=== PATIENT | female | born 1945 | race Caucasian/White ===

== ENCOUNTER 2017-09-02 19:01 | Emergency (ER) | payer MEDICARE, OTHER ==
[2017-09-02 19:16] VITALS: BP 160/58
== END 2017-09-02 20:25 | disposition left against medical advice (07) ==
LOC: ED 19:01
DX: R10.9 Unspecified abdominal pain (principal); Z53.21 Procedure and treatment not carried out due to patient leaving prior to being seen by health care provider

== ENCOUNTER 2019-04-05 10:40 | Observation (INO) | payer MEDICARE, OTHER ==
[2019-04-05] MEDS ORDERED: NS 0.9% 1000 ML** 1,000 ML IV ONE (10:46)
[2019-04-05 11:12] LABS: ABS Eosinophils 0.1 10^3/ul (0-0.6); ABS Lymphocytes 1.6 10^3/ul (1.0-4.8); ABS Monocytes 0.6 10^3/ul (0-0.8); ABS Neutrophils 6.6 10^3/ul (1.5-7.7); Eosinophil % 0.7 %; Hematocrit 44 % (35-47); Hemoglobin 15.2 g/dL (12.0-16.0); Lymphocyte % 17.7 %; Mean Corpuscular HGB Conc 35 g/dL (31-36); Mean Corpuscular Hemoglobin 31 pg (27-31); Mean Corpuscular Volume 89 fL (80-97); Mean Platelet Volume 7.5 fL (7.4-10.4); Nucleated Red Blood Cells % 0.1; Platelet Count 227 10^3/uL (150-450); Red Blood Count 4.94 10^6 /uL (3.70-4.87); Red Cell Distribution Width 13 % (10-15); White Blood Count 8.9 10^3/uL (3.5-10.8)
--- NOTE | 2019-04-05 11:22 | ED ---
Neurological HPI - HPI Summary HPI Summary: Pt is a 73 y/o F presenting to the ED with a chief complaint of L-sided weakness. Upon waking up at 0200, she noticed that her L arm and hand were weak , which has since resolved. She states she felt fine when going to bed. Before presenting to the hospital, she developed a headache. Last known well: 1999. She denies fevers. CODE JANET CALLED: 10:42. - History of Current Complaint Chief Complaint: EDNeurologicalDeficit Stated Complaint: PAIN IN BACK OF HEAD PER PT Time Seen by Provider: 04/05/19 10:46 Last Known Well Date: 04/04/19 20:00 Hx Obtained From: Patient Onset/Duration: Gradual Onset, Started hours ago, Still Present Timing: Constant Onset Severity: Moderate Current Severity: Moderate Character: Weak, Motor Weakness, Other: - headache Aggravating: Unknown Alleviating: Unknown Associated Signs and Symptoms: Positive: Headache, Weakness. Negative: Fever TPA Considered: No - Allergy/Home Medications Allergies/Adverse Reactions: Allergies Allergy/AdvReac Type Severity Reaction Status Date / Time Cephalosporins Allergy Rash Verified 04/05/19 13:06 Home Medications: Home Medications Aspirin EC TAB* [Ecotrin EC Low Dose 81 MG*] 81 mg PO DAILY 04/05/19 [History Confirmed 04/05/19] Atorvastatin* [Lipitor*] 20 mg PO DAILY 04/05/19 [History Confirmed 04/05/19] Lisinopril/HCTZ 20/12.5(NF) [Zestoretic 20/12.5(NF)] 1 tab PO DAILY 04/05/19 [ History Confirmed 04/05/19] Venlafaxine EXT RELEASE CAP* [Effexor Xr CAP*] 75 mg PO DAILY 04/05/19 [History Confirmed 04/05/19] Venlafaxine EXT RELEASE CAP* [Effexor Xr CAP*] 150 mg PO DAILY 04/05/19 [ History Confirmed 04/05/19] Ziprasidone * [Geodon (generic) *] 40 mg PO BID 04/05/19 [History Confirmed ] amLODIPine TAB* [Norvasc 5 mg TAB*] 10 mg PO DAILY 04/05/19 [History Confirmed 04/05/19] metFORMIN* [Glucophage 500 MG TAB *] 500 mg PO DAILY 04/05/19 [History Confirmed 04/05/19] PMH/Surg Hx/FS Hx/Imm Hx Previously Healthy: Yes Endocrine/Hematology History: Reports: Hx Anticoagulant Therapy - ASA daily Cardiovascular History: Reports: Hx Hypertension Sensory History: Reports: Hx Contacts or Glasses Opthamlomology History: Reports: Hx Contacts or Glasses Neurological History: Reports: Hx Transient Ischemic Attacks (TIA) Psychiatric History: Reports: Hx Depression - Surgical History Surgery Procedure, Year, and Place: HYSTERCTOMY Infectious Disease History: No Infectious Disease History: Denies: Traveled Outside the [place] in Last 30 Days - Family History Known Family History: Negative: Cardiac Disease - Social History Alcohol Use: None Hx Substance Use: No Substance Use Type: Reports: None Hx Tobacco Use: Yes Smoking Status (MU): Former Smoker Review of Systems Negative: Fever Positive: Headache, Weakness All Other Systems Reviewed And Are Negative: Yes Physical Exam - Summary Physical Exam Summary: Appearance: Well-appearing, Well-nourished, lying in bed comfortably Skin: Warm, dry, no obvious rash Eyes: sclera anicteric, no conjunctival pallor ENT: mucous membranes moist, pharynx appears normal Neck: Supple, nontender Respiratory: Clear to auscultation, no signs of respiratory distress Cardiovascular: Normal S1, S2. No murmurs. Normal distal pulses in tibial and radial bilaterally. Abdomen: Soft, nontender, normal active bowel sounds present Musculoskeletal: Normal, Strength/ROM Intact, Motor function in all 4 extremities is normal and symmetric. There is no rigidity or tremor noted. Neurological: A&Ox3, awake and alert, mentation is normal, speech is fluent and appropriate, Level of consciousness nml. The patient is alert and oriented. There is slight facial droop of the left. Gaze is conjugate and without nystagmus. Peripheral vision is intact to confrontation. There are no gross sensory abnormalities to light touch. There is no truncal or fine motor ataxia. Gait is normal. L arm is slightly weak. Psychiatric: affect is normal, does not appear anxious or depressed Triage Information Reviewed: Yes Vital Signs On Initial Exam: Initial Vitals Temp 97.8 F 04/05/19 10:44 Vital Signs Reviewed: Yes - Roel Coma Scale Best Eye Response: 4 - Spontaneous Best Motor Response: 6 - Obeys Commands Best Verbal Response: 5 - Oriented Coma Scale Total: 15 Diagnostics - Vital Signs Vital Signs Temp 04/05/19 10:44 97.8 F - Laboratory Lab Results: Lab Results 04/05/19 Range/Units 11:05 WBC 8.9 (3.5-10.8) 10^3/uL RBC 4.94 H (3.70-4.87) 10^6 /uL Hgb 15.2 (12.0-16.0) g/dL Hct 44 (35-47) % MCV 89 (80-97) fL MCH 31 (27-31) pg MCHC 35 (31-36) g/dL RDW 13 (10-15) % Plt Count 227 (150-450) 10^3/uL MPV 7.5 (7.4-10.4) fL Neut % (Auto) 74.3 % Lymph % (Auto) 17.7 % [place] % (Auto) 7.0 % Eos % (Auto) 0.7 % Baso % (Auto) 0.3 % Absolute Neuts (auto) 6.6 (1.5-7.7) 10^3/ul Absolute Lymphs (auto) 1.6 (1.0-4.8) 10^3/ul Absolute Monos (auto) 0.6 (0-0.8) 10^3/ul Absolute Eos (auto) 0.1 (0-0.6) 10^3/ul Absolute Basos (auto) 0.0 (0-0.2) 10^3/ul Absolute Nucleated RBC 0.0 10^3/ul Nucleated RBC % 0.1 Result Diagrams: 04/05/19 11:05 04/05/19 11:05 Lab Statement: Any lab studies that have been ordered have been reviewed, and results considered in the medical decision making process. - Radiology CXR Radiology Interpretation Completed By: Radiologist Summary of Radiographic Findings: No active cardiopulmonary disease is noted. ED physician has reviewed this report. - CT Brain CT CT Interpretation Completed By: Radiologist Summary of CT Findings: 1. NO EVIDENCE FOR GROSS ACUTE INFARCT, MASS EFFECT OR HEMORRHAGE. 2. SMALL OLD LACUNAR INFARCT WITHIN THE RIGHT CAUDATE NUCLEUS. ED physician has reviewed this report. - EKG 1103 Cardiac Rate: NL - 63bpm EKG Rhythm: Sinus Rhythm ST Segment: Normal Ectopy: None Summary of EKG Findings: EKG at 1103 shows NSR at 63 BPM, P waves, QRS complex, and T waves are within normal limits, T waves and intervals are normal, no ischemic changes. This is a normal EKG. Course/Dx - Course Course Of Treatment: Pt is a 73 y/o F presenting to the ED with a chief complaint of L-sided weakness. Upon waking up at 0200, she noticed that her L arm and hand were weak, which has since resolved. She states she felt fine when going to bed. Before presenting to the hospital, she developed a headache. Last known well: 1999. She denies fevers. SHARIF GONZALES CALLED: 10:42. Pt's physical exam shows slight L sided facial droop and slight L arm weakness. Brain CT shows: 1. NO EVIDENCE FOR GROSS ACUTE INFARCT, MASS EFFECT OR HEMORRHAGE. 2. SMALL OLD LACUNAR INFARCT WITHIN THE RIGHT CAUDATE NUCLEUS. EKG at 1103 shows NSR at 63 BPM, P waves, QRS complex, and T waves are within normal limits, T waves and intervals are normal, no ischemic changes. This is a normal EKG. I spoke with Dr. Rosen who stated that the pt should be admitted to [facility] with a dx of CVA. CXR shows: No active cardiopulmonary disease is noted. Dr. Garcia obtained an NIH stroke score of 2, please refer to his notes for further detail. - Diagnoses Provider Diagnoses: CVA (cerebral vascular accident) During the Visit The Following Alert/Code Occurred: Sharif Gonzales Discharge - Sign-Out/Discharge Documenting (check all that apply): Patient Departure All imaging exams completed and their final reports reviewed: Yes Patient Received Moderate/Deep Sedation with Procedure: No - Discharge Plan Condition: Stable Disposition: ADMITTED TO [facility] - Billing Disposition and Condition Condition: STABLE Disposition: Admitted to [facility] - Attestation Statements Document Initiated by Cristoferibe: Yes Documenting Scribe: Jena Jones Provider For Whom Tarsha is Documenting (Include Credential): Amaury Mcclelland MD. Scribe Attestation: Jena Mallory, claytoned for Amaury Mcclelland MD. on 04/06/19 at 0945. Scribe Documentation Reviewed: Yes Provider Attestation: The documentation as recorded by the scribe, Jena Jones accurately reflects the service I personally performed and the decisions made by me, Amaury Mcclelland MD. Status of Scribe Document: Viewed Consult Consult: [id number] - D spoke with Dr. Rosen who agreed to admit the pt to [facility] with dx of CVA.
[2019-04-05 11:34] LABS: Albumin 4.1 g/dL (3.2-5.2); Albumin/Globulin Ratio 1.1 (1-3); BUN/Creatinine Ratio 16.1 (8-20); EGFR African American 43.4 (>60); EGFR Non-African American 35.9 (>60); Globulin 3.6 g/dL (2-4); HDL Cholesterol 74.7 mg/dL; Total Bilirubin 0.4 mg/dL (0.2-1.0); Total Protein 7.7 g/dL (6.4-8.9)
[2019-04-05 11:41] LABS: Activated Partial Thrombo Time 36.6 seconds (26.0-38.0); INR 0.91 (0.82-1.09)
[2019-04-05] MEDS: Acetaminophen TAB* 325 MG PO PRN (14:16)
[2019-04-05 14:29] LABS: TSH (Thyroid Stimulating Horm) 2.09 mcIU/mL (0.34-5.60)
--- NOTE | 2019-04-05 14:44 | CONS ---
NEUROLOGY CONSULTATION REPORT: DATE OF CONSULT: 04/05/19 PRODUCTION LINE OPERATOR PROVIDER: Dr. Amaury Mcclelland. REASON FOR CONSULT: Activated code falcon to evaluate the patient for acute stroke. CHIEF COMPLAINT: Slurred speech and facial droop. HISTORY OF PRESENT ILLNESS: Mrs. Payton is a 73-year-old female with history of TIA, who is on aspirin, who presented to [facility] with a sudden onset of slurred speech and left-sided paraesthesias. The patient stated that according to her , the patient was last known well at 8 p.m. on . She woke up at 2 a.m. on 04/05/19 feeling confused, having slurred speech, and complaining of tingling on the left arm. She went to back to sleep and woke up around at 8 a.m. and noticed a persistence of her symptoms. Currently, her main complaint is mild slurred speech. Her symptoms on the left upper extremity have resolved. NIH stroke scale when I assessed the patient was 2 due to mild slurred speech and mild left facial droop. The patient stated that she has a history of TIA where she was dizzy and had imbalance and therefore was diagnosed with TIA given the negative workup at that time. The patient is not a tPA candidate. The decision to not give a tPA was made at 10:48 a.m. Stroke alert at 10:42 a.m. PAST MEDICAL HISTORY: Hypertension, dyslipidemia, history of depression, TIA. MEDICATIONS: 1. Geodon 40 mg p.o. b.i.d. 2. Venlafaxine 150 mg p.o. daily. 3. Metformin 500 mg daily. 4. Amlodipine 10 mg p.o. daily. 5. Atorvastatin 20 mg p.o. daily. 6. Aspirin 81 mg p.o. daily. 7. Lisinopril/hydrochlorothiazide 1 tab by mouth daily. ALLERGIES: CEPHALEXIN. FAMILY HISTORY: No history of stroke or seizures. SOCIAL HISTORY: The patient is retired, she lives with her . She is a former smoker. She worked in [employer] services at [employer]. She has 2 children. She denied any alcohol abuse. REVIEW OF SYSTEMS: A 14 point review of system was obtained and otherwise negative except what was mentioned in the HPI. PHYSICAL EXAM: Vitals: Not recorded or not available, but temperature was 97.8. I personally saw her blood pressure and heart rate when she went to the CT scan and it was documented as 142/87 and a heart rate of 64. Well-appearing female in no acute distress. Head: Atraumatic, normocephalic. Eyes: Conjunctivae/corneas are clear. Neck is supple and symmetrical with no carotid bruit. No lymphadenopathy. Lungs are clear to auscultation bilaterally. Cardiovascular: Regular rate and rhythm with normal S1, S2. Extremities: Normal range of motion with no cyanosis. Skin: No skin lesions or laceration. Psych: Affect is flat and slightly depressed mood, but she is easy to establish rapport. Neurological Examination: Mental status awake, alert and oriented to person, place, time, and general circumstance. Speech and language manifesting as mild dysarthria with no aphasia. Cranial Nerves: Normal confrontation testing bilaterally. Pupils are midrange and reactive to light. Extraocular muscles are intact. Sensation is intact on the forehead, cheeks, and jaw region bilaterally. There is slight left facial droop. She is able to hear throughout the history process. Symmetrical palate elevation. There is normal strength against resistance. Tongue is symmetrical and midline with no atrophy or fasciculation. Motor: No abnormal movements. No pronator drift. She has 5/5 strength in the upper and lower extremities bilaterally. Reflexes right/left brachioradialis 1/1, biceps 1/1, triceps 1/1, patella 2/2, ankle 1/1 , plantar flexor/flexor. Sensation is intact to light touch throughout. Coordination normal [id number] and rapid alternating movement. Gait and station was not assessed due to acuity of her symptoms. DIAGNOSTIC STUDIES/LABORATORY DATA: CT head without contrast showed no evidence of acute intracranial abnormality. CTA head and neck were not obtained due to the low NIH stroke scale. WBC 8.9, hemoglobin 15.2, hematocrit 44, platelet count of 227. INR 0.91. Sodium of 136, potassium of 4.0, chloride of 104, carbon dioxide 23, BUN of 23, creatinine 1.43, glucose 159, lactic acid 2.8. Total cholesterol 163, LDL of 76 , HDL is 74. ASSESSMENT: Mrs. Kary Payton is a 73-year-old female who has history of hypertension, dyslipidemia, transient ischemic attack, and diabetes mellitus type 2, who is a former smoker, who presented with a sudden onset left hemiparesthesia, slurred speech, and left facial droop. The symptoms have nearly resolved except that she has mild dysarthria and left facial droop. Code falcon was activated to evaluate the patient for tPA therapy. The patient is not a candidate for tPA therapy due to low NIH stroke scale and last known well normal was outside the therapeutic window. We did not assess for large vessel occlusion given her symptoms are mild, improving, and her NIH stroke scale is low. 1. The differential diagnosis here is I suspect that she may have had a small lacunar stroke involving the lenticulostriate branches on the right or the right pontine perforative branches. Other location includes small cortical infarct involving the precentral motor gyrus. Seizure is low on the differential but given that her reported that she felt slightly confused in the morning, a complex partial seizure cannot be entirely excluded. 2. History of hypertension, dyslipidemia, diabetes mellitus, depression and bipolar disorder - we will defer to the primary team. RECOMMENDATION: Admit to the hospitalist for further stroke evaluation. I ordered MRI brain, MRI head, and MRI neck without contrast to evaluate for right hemispheric stroke. I also ordered a 2D transthoracic echo with bubble study. Please resume the patient's antihypertensive agents, antipsychotic medication, antidepressant therapy, and aspirin. Please add clopidogrel 75 mg daily for 30 days. Neuro checks every 4 hours. Continue supportive care. Consult PT/OT/AGRONOMY MANAGER to evaluate and treat. Please perform a bedside swallow evaluation prior to any p.o. intake. Primary/secondary stroke prevention was discussed with the patient and her . Allow permissive hypertension for next 24 hours and treat any systolic blood pressure greater than [address] holding parameters and all her hypertensive agents to hold if systolic blood pressure if less than 140s. I have discussed these findings with the patient and her . I also discussed the case with Dr. Mcclelland and Dr. Pittman. TIME SPENT: Critical care time of 60 minutes of which more than 50% was spent evaluating the patient for acute stroke, examining the patient, education, counseling, and discussing the exclusion and inclusion criteria of tPA therapy. I also interpreted the CT head imaging studies. [id number]/[facility] #: [id number] VLAD
--- NOTE | 2019-04-05 15:09 | ECHO ---
*[facility]* [place] [address] Fax #: [phone] Patient: Fito, Height: 65 in / Kary Kingsley 165.1 cm : 1945 Weight: 191.6 lb / Study Date: 04/05/2019 87.1 kg Age: 73 BP: 121 / 95 Gender: F BMI/BSA: 32 kg/m^2 / HR: 72 bpm 1.94 m^2 *Pipe Inspector: * Tameka Mcmullen RDCS RN *Referring Physician: * Matias Garcia *Reading Physician: * Rafat Rolon MD Indications: CVA. History: Transient ischemic attack. Risk factors: Former tobacco use. Hypertension. Obese. Conclusions Summary: 1. Left ventricle: The cavity size is mildly reduced. Wall thickness is mildly increased. Systolic function is normal. The estimated ejection fraction is 60-65%. Wall motion is normal; there are no regional wall motion abnormalities. 2. Functionally benign heart valves. 3. Atrial septum: No defect or patent foramen ovale is identified. 4. There is no prior echocardiogram available to compare with at this time. Study data: Procedure: Transthoracic echocardiography was performed. Image quality was fair. The study was technically limited due to body habitus and Smoking history. A bubble study was performed on Images 69 and 70. Complete 2D, spectral Doppler, and color flow Doppler. Patient status: Observation. Patient room number: ED 17. Rhythm: Normal sinus rhythm. Findings Left ventricle: The cavity size is mildly reduced. Wall thickness is mildly increased. Systolic function is normal. The estimated ejection fraction is 60-65%. Wall motion is normal; there are no regional wall motion abnormalities. Left ventricular diastolic function parameters are indeterminate. Right ventricle: The cavity size is normal. Systolic function is normal. Left atrium: The atrium is normal in size. Right atrium: The atrium is normal in size. Atrial septum: No defect or patent foramen ovale is identified. Bubble study was negative. Images 69 and 70. Mitral valve: The leaflets are mildly thickened. There is trace-mild regurgitation. Aortic valve: The valve is trileaflet. The leaflets are mildly thickened. There is no evidence of stenosis. There is no regurgitation. Tricuspid valve: The valve is structurally normal. There is trace regurgitation. Pulmonic valve: The valve is structurally normal. There is no evidence of stenosis. There is trace regurgitation. Aorta: Aortic root: The aortic root is not dilated. Ascending aorta: The ascending aorta is not dilated. Aortic arch: The aortic arch is not visualized. Pericardium: A prominent pericardial fat pad is present. There is no significant pericardial effusion. Pulmonary arteries: The main pulmonary artery is normal-sized. Systolic pressure can not be accurately estimated. Systemic veins: Inferior vena cava: The vessel is normal in size. The respirophasic diameter changes are in the normal range (>= 50%). Measurements Left ventricle Value Ref Right atrium Value Ref SHEA, LAX (L) 3.6 cm 3.8 - 5.2 ML dim, ES, A4C 4.1 cm 2.6 - 4.4 ESD, LAX 2.5 cm 2.2 - 3.5 SI dim, ES, A4C 5.2 cm 3.4 - 5.3 FS, LAX 32 % 27 - 45 Estimated RAP 3 mm Hg --------- PW, ED (H) 1.2 cm 0.6 - 0.9 IVS/PW, ED 1.15 Aortic valve Value Ref E', lat kaden, TDI (L) 4.8 cm/sec >=10.0 Kaden diam, ED 2.0 cm --- ------ E/e', lat kaden, 14 Peak v, S 1.5 m/sec ------ --- TDI VTI, S 36.3 cm --------- E', med kaden, TDI (L) 6.0 cm/sec >=7.0 Mean grad, S 5.0 mm Hg --- ------ E/e', med kaden, 12 Peak grad, S 9.0 mm Hg ------ --- TDI LVOT/AV, VTI ratio 0.81 --------- E', avg, TDI 5.4 cm/sec E/e', avg, TDI 13 <=14 Mitral valve Value Ref Peak E 0.69 m/sec --------- LVOT Value Ref Peak A 1.03 m/sec --------- Peak koby, S 1.15 m/sec Decel time 289 ms --------- VTI, S 29.3 cm Peak E/A ratio 0.7 --------- Peak grad, S 5 mm Hg Mean grad, S 3 mm Hg Pulmonic valve Value Ref Peak v, S 1.04 m/sec --------- Ventricular septum Value Ref Peak grad, S 4.0 mm Hg --------- IVS, ED (H) 1.4 cm 0.6 - 0.9 Aortic root Value Ref Right ventricle Value Ref Root diam 3.1 cm <4.1 SHEA, LAX 3.2 cm SHEA minor ax, 2.5 cm 1.9 - 3.5 Ascending aorta Value Ref A4C mid AAo AP diam, S 3.2 cm --------- Left atrium Value Ref Inferior vena cava Value Ref AP dim, ES (H) 4.00 cm 2.70 - Diam 1.8 cm --------- 3.80 ML dim, A4C 4.6 cm SI dim, A4C 5.9 cm Vol/bsa, ES, 1-p 37 ml/m^2 11 - 40 A4C Vol/bsa, ES, A/L 33 ml/m^2 16 - 34 Legend: (L) and (H) ray values outside specified reference range. Prepared and electronically signed by Rafat Rolon MD 04/05/2019 15:07
--- NOTE | 2019-04-05 15:33 | HP ---
CC: Dr. Keith; Dr. Garcia HISTORY AND PHYSICAL: DATE OF ADMISSION: 04/05/19 TIME OF EVALUATION: 12:45 p.m. PRIMARY CARE PROVIDER: Dr. Keith. CONSULTING NEUROLOGIST: Dr. Garcia. CHIEF COMPLAINT: Left-sided weakness. HISTORY OF PRESENT ILLNESS: Mrs. Payton is a 73-year-old lady with a past medical history of hypertension, hyperlipidemia, depression, type 2 diabetes, prior TIA in 2011, who presents to the emergency room with complaints of left- sided weakness. The patient states she was in her usual state of health when she went to bed around 8 last night. She states she woke up around 2 in the morning and she could not move her left arm. She states that she thought she had "slept wrong" and just went back to sleep. She woke up around 9 a.m. still having weakness, but she also had mild headache, a reason that prompted her visit to the emergency room. She describes the pain as mild, 2/10 in intensity still in "back of the head." She states since arriving to the emergency room, she has had improvement of her weakness and she feels back to normal. The patient was admitted to [facility] in 2011 with complaints of dizziness and at that time the impression was that she had a TIA and aspirin was added to her regimen. She states that since that time, she has been doing well and she was actually seen by her primary care provider a couple of months ago and told that "she was doing well." She denies chest pain, palpitations, nausea, vomiting, shortness of breath, or urinary complaints. PAST MEDICAL HISTORY: 1. TIA. 2. Type 2 diabetes. 3. Hypertension. 4. Hyperlipidemia. 5. Depression. MEDICATIONS: 1. Amlodipine 10 mg p.o. daily. 2. Aspirin 81 mg p.o. daily. 3. Atorvastatin 20 mg p.o. daily. 4. Lisinopril/hydrochlorothiazide 20/12.5 1 tablet p.o. daily. 5. Metformin 500 mg p.o. daily. 6. Venlafaxine 150 plus 75 mg p.o. daily. 7. Ziprasidone 40 mg p.o. b.i.d. ALLERGIES: The patient has an unknown reaction to CEPHALEXIN. FAMILY HISTORY: Reviewed and noncontributory. SOCIAL HISTORY: The patient denies history of tobacco, alcohol, or drug use. 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 Surrogate decision maker is her , Tommy Payton, phone number is [phone]. REVIEW OF SYSTEMS: A 14-point review of systems was performed and all the pertinent negative and positive findings are in the HPI. PHYSICAL EXAMINATION GENERAL: The patient is a pleasant obese lady, lying in the stretcher, in no acute distress. VITAL SIGNS: Temperature 97.8, heart rate is 68, respiratory rate is 20, oxygen saturation is 98% on room air, blood pressure is 160/75. HEENT: Pupils are equal, reactive to light. Moist mucous membranes. CHEST: Breath sounds present bilaterally with no added sounds. CVS: Normal S1, S2. Regular rate and rhythm. ABDOMEN: Soft, obese, nontender, nondistended. Bowel sounds are present. NEUROLOGIC: She is alert and oriented x3. Speech is clear. There is a questionable left-sided facial droop and minimal left upper extremity weakness. DIAGNOSTIC STUDIES/LAB DATA: The patient had a CBC that showed an WBC of 8.9, hemoglobin of 15.2, hematocrit 44, platelets of 227 with 74% neutrophils. INR is 0.91. Chemistry showed sodium of 136, potassium of 4, chloride 104, bicarb of 23, BUN of 23, creatinine of 1.4, glucose of 159, lactic acid is 2.8, calcium is 10. LFTs are normal. Troponin was 0. Lipid profile showed total cholesterol of 163, LDL of 76, HDL of 74, triglycerides of 63. CT of the brain without contrast showed no evidence for gross acute infarct, mass effect, or hemorrhage. There is only a small old lacunar infarct within the right caudate nucleus. Chest x-ray showed no active cardiopulmonary disease. EKG done 04/05/19 at 11:03 a.m. showed sinus rhythm at 63 beats per minute with no ST-T changes and there is no significant change when compared to her prior EKG from April 2012. ASSESSMENT AND PLAN: Mrs. Payton is a 73-year-old lady with a past medical history of obesity with a BMI of 36, hypertension, hyperlipidemia, type 2 diabetes, prior transient ischemic attack, depression, who presented to the emergency room with complaint of left-sided weakness, likely secondary to a lacunar cerebrovascular accident. 1. Lacunar cerebrovascular accident. The patient's last known normal is 8 p.m. last night. Her NIH Stroke Scale by Neurology was only 2 and mine now is only 1. She likely had a lacunar cerebrovascular accident especially considering that her CT shows an old one and she does have risk factors including hypertension, hyperlipidemia, type 2 diabetes, and had a TIA in the past. She will be admitted to the telemetry floor so we can continue her workup including echocardiogram, MRI of the brain, MRA head and neck. I discussed the case with Neurology (Dr. Garcia) and his recommendation was to add clopidogrel to her aspirin and continue her atorvastatin at the same dose as her LDL is 76. She will be monitored with neurological checks. She will have PT and OT evaluations. 2. Hypertension. We will continue her amlodipine, hydrochlorothiazide/ lisinopril with holding parameters to allow for permissive hypertension on her first 24 hours in the hospital. 3. Hyperlipidemia. LDL is 73. We will continue her atorvastatin. 4. Type 2 diabetes. We will check a hemoglobin A1c. I am going to hold her metformin for now in case she needs to have contrast studies and she will covered with a lispro sliding scale. 5. Depression. We will continue venlafaxine and Ziprasidone. 6. Mild lactic acidosis. Likely secondary to metformin use. The patient has no infectious signs at this time. We will repeat a lactic acid to make sure it is trending down. 7. DVT prophylaxis. The patient has a score of 3 on the DVT Prophylaxis Risk Assessment Guide and she will be started on subcutaneous heparin. 8. Code status is full. TIME SPENT: Approximately 60 minutes was spent with the patient interview, medical records review, physical examination to complete this admission, more than half of this time was spent [id number] with the patient and coordination of care. [id number]/[facility] #: [id number] VLAD
[2019-04-05] MEDS: Aspirin EC TAB* 81 MG TAB.EC PO SCH (16:18)
[2019-04-05] MEDS: Heparin VIAL(*) 5000 UNITS/ML VIAL (FIVE THOUSAND) SUBCUT SCH ×2 (16:19→21:33)
[2019-04-05] MEDS: Clopidogrel TAB* 75 MG PO SCH (16:19)
[2019-04-05] MEDS ORDERED: amLODIPine TAB* 5 MG PO ONE (16:48)
[2019-04-05] MEDS ORDERED: Dextrose 50% Syringe 50 ML* 25 GM/50 ML SYRINGE IV PUSH PRN (18:03)
[2019-04-05] MEDS ORDERED: Venlafaxine EXT RELEASE CAP* 75 MG PO SCH (18:30)
--- NOTE | 2019-04-05 20:41 | EEG ---
ELECTROENCEPHALOGRAPHY: DATE OF STUDY: 04/05/19 DATE READ: 04/05/19 ORDERED BY: Dr. Matias Garcia. CLINICAL PROBLEM: Ms. Payton is a 73-year-old female with an episode of confusion and left-sided numbness and tingling sensation. This EEG was requested to evaluate for any epileptiform discharges or electrographic seizures. CLINICAL STATE: Awake and drowsy. MEDICATIONS: 1. Aspirin. 2. Plavix. 3. Heparin. 4. Geodon. 5. Norvasc. 6. Lipitor. 7. HydroDIURIL. 8. Effexor. 9. Tylenol. TIMING OF RECORDIN to 1540. REPORT: The most prominent feature of this recording were intermittent, frequent paroxysms of medium amplitude polymorphic right frontotemporal slowing lasting for 1-3 seconds. There were no clear epileptiform discharges. These were predominantly maximal at F8 and T4. Also, the posterior dominant rhythm was not as uniformly seen in the right hemisphere, but was still present. Otherwise, the waking background showed appropriate organization with clearly defined anterior- posterior voltage and frequency gradients. There was a well- defined posterior dominant rhythm, again predominantly seen in the left hemisphere and it was about 9 Hz. Anteriorly, there was an expected pattern of lower voltage, irregular, and mixed faster frequency. Hyperventilation and photic stimulation were not performed. Single electrode EKG showed a normal sinus rhythm with a rate of 70 beats per minute. Throughout the recording, there were no epileptiform discharges or electrographic seizures. Attenuation of the occipital rhythm accompanied drowsiness. CLINICAL IMPRESSION: This is an abnormal awake and drowsy EEG due to the presence of paroxysmal slowing in the right frontotemporal region and the posterior dominant rhythm was seen slightly asymmetric with some irregularity in the right posterior region. These findings are suggestive of a focal neuronal dysfunction involving the right hemisphere. Given her clinical presentation of sudden onset left facial droop and left-sided paresthesias, the findings are suspicion for acute stroke in the right hemisphere. [id number]/[facility] #: [id number] VLAD
[2019-04-05] MEDS: Insulin LISPRO* 1 UNITS UNIT SUBCUT SCH (21:19)
[2019-04-05] MEDS: Lactated Ringers 1000 ML Bag* 1,000 ML IV SCH (21:32)
[2019-04-05] MEDS: Ziprasidone * 20 MG CAP (generic Geodon) PO SCH (21:33)
[2019-04-06] MEDS: Heparin VIAL(*) 5000 UNITS/ML VIAL (FIVE THOUSAND) SUBCUT SCH ×2 (05:55→13:35)
[2019-04-06] MEDS: Insulin LISPRO* 1 UNITS UNIT SUBCUT SCH ×3 (07:50→16:41)
[2019-04-06] MEDS ORDERED: Hydrochlorothiazide TAB* 25 MG PO SCH (09:00)
[2019-04-06] MEDS ORDERED: Aspirin EC TAB* 81 MG TAB.EC PO SCH (09:00)
[2019-04-06] MEDS ORDERED: Lisinopril TAB* 10 MG PO SCH (09:00)
[2019-04-06] MEDS ORDERED: Atorvastatin* 20 MG TAB PO SCH (09:00)
[2019-04-06] MEDS ORDERED: amLODIPine TAB* 5 MG PO SCH (09:00)
[2019-04-06] MEDS ORDERED: Venlafaxine EXT RELEASE CAP* 75 MG PO SCH ×2 (09:00)
[2019-04-06] MEDS: Ziprasidone * 20 MG CAP (generic Geodon) PO SCH (09:11)
[2019-04-06] MEDS: Clopidogrel TAB* 75 MG PO SCH (09:12)
[2019-04-06] MEDS: Aspirin EC TAB* 81 MG TAB.EC PO SCH (09:13)
[2019-04-06 12:15] VITALS: BP 158/54
[2019-04-06] MEDS: Acetaminophen TAB* 325 MG PO PRN (13:34)
--- NOTE | 2019-04-06 13:44 | CONS ---
NEUROLOGY CONSULTATION: ADDENDUM: DATE OF FOLLOWUP: 04/06/19 HOSPITALIST: Dr. Kate. DIAGNOSTIC STUDIES/LAB DATA: Review of the MRI of the brain, the interpretation includes areas of re stricted diffusion in the right frontal and parietal regions. I reviewed the images personally. I do not clearly see a left hemisphere area of restricted diffusion. There are multiple areas of restric car diffusion in the right basal ganglia, a somewhat more faded looking one in the right parietal reg ion and in the right subcortical frontal region. MR angiogram of the brain and neck was obtained. I reviewed the images personally. MR angiogram of t he neck was interpreted as showing a moderate grade stenosis of the proximal internal carotid arterie s bilaterally. I reviewed the source images. I think there may be a high-grade stenosis of the proxi mal right internal carotid artery to my view. MR angiogram of the brain is notable for the left posterior cerebral artery being supplied by the lef t posterior communicating artery. There is atherosclerotic change within the A1 segment of the left anterior cerebral artery and the left posterior cerebral artery. A transthoracic echocardiogram from yesterday is essentially interpreted as normal. IMPRESSION: Right middle cerebral artery distribution multifocal infarcts. I suspect embolic materi al is coming from the right internal carotid. Cardiogenic emboli remains a possibility. I am not en tirely convinced of the left frontal lobe area of restricted diffusion. Called the auto tech to try to expedite a carotid ultrasound focusing on the right internal car otid. If she does have high-grade right internal carotid stenosis, she should be transferred to a nter with a vascular surgery capability. It is generally recommended that the patient have an endarte rectomy within 2 weeks of transient ischemic attack or minor stroke. If she does not have evidence o f significant carotid stenosis on the right, then we will keep her here and continue monitoring her. If needed, I will get a CT angiogram, but given her GFR, I prefer to avoid it. [id number]/[facility] #: [id number]
--- NOTE | 2019-04-06 13:52 | CONS ---
NEUROLOGY CONSULTATION FOLLOWUP NOTE: DATE OF FOLLOWUP: 04/06/19 LOCATION: She is in an inpatient in room 450. HOSPITALIST: Dr. Pittman. PRIMARY CARE PHYSICIAN: Dr. Keith. CHIEF COMPLAINT: Left arm weakness. INTERVAL HISTORY: Since yesterday, Kary feels her left hand has gotten somewhat weaker. She fe els her speech is fine and her does not notice any difference from yesterday. She has no new symptoms. In going over the history she said that last evening she was hypersensitive to light. Wi th specific question, it was just the right eye. That is no longer the case today. She also had sosa e right frontotemporal head pain yesterday, which is gone today. She does not notice any leg weaknes s. She has not noticed any change in vision. With further questions, she reports that she was said to have a "60% right carotid and 40% left carot id narrowing" on an ultrasound that was done by Dr. Keith at the [facility]. She said the study was done because Dr. Keith heard an abnormal sound when she auscultated her neck. With specific qu estion regarding her vision, she does admit to an episode of transient monocular blindness several mo nths ago. She believes it lasted perhaps 5 minutes. She did not seek medical attention. She does no t remember what side it was, but her volunteers that he thinks it was the right. MEDICATIONS: Medications are reviewed and she is currently on: 1. Aspirin 81 mg p.o. every day. 2. Plavix 75 mg p.o. every day. 3. Amlodipine 10 mg p.o. every day. 4. Heparin subcutaneous 5000 units q.8 hours. 5. Hydrochlorothiazide 12.5 mg p.o. every day. 6. Sliding scale insulin. 7. Lisinopril 20 mg p.o. every day. 8. Venlafaxine 225 mg p.o. every day. 9. Geodon 40 mg p.o. b.i.d. PHYSICAL EXAM: She is overweight. Blood pressure most recently is 142/53, earlier this morning was 125/54. She has been afebrile throughout her hospital stay. Heart rates in the 60s and regular. Res piratory rate is 20 and oxygen saturation is 94% on room air. Heart is in a regular rate and rhythm with a grade 1/6 early systolic murmur, left lower sternal border. Carotid pulses are weak but present. She has a fairly loud right carotid bruit. I do not auscultate a bruit on the left. Lungs are clear bilaterally. Neurologic Exam: Pupils react equally from 3 down to 2.5 mm. I cannot see her right fundus because of a cataract. Eye movements are full. Visual huffman are full to confrontation. Facial musculature is notable for flattening of the left nasal labial fold. Upper facial musculature is normal. Facia l sensation to pin and light touch is symmetrical bilaterally. Speech sounds clear, tongue protrudes in the midline, palate raises symmetrically. Motor exam reveals a left pronator drift and left intr insic hand muscle and wrist extensor weakness. She has normal strength in the right arm and leg and the left leg is well. Finger taps were normal in the right hand and extremely slow in the left. Sen sation to light touch and pin discrimination is symmetrical in the upper extremities. Reflexes are d iffusely brisk at the knees and upper extremities. Plantar responses are flexor bilaterally. I did not attempt to ambulate her. She is alert and oriented to person, place, and time. Memory is intact and language is fluent. I should note that she is left handed. DIAGNOSTIC STUDIES/LAB DATA: Laboratory data from 04/05/19: Her creatinine is elevated at 1.43 as o f yesterday morning. Glucose 159. Rest of the chemistry profile is unremarkable. Cholesterol yeste rday was 162 and LDL 76. CBC is within normal limits. INR and PTT are within normal limits as of . MRI of the brain is reviewed. It is interpreted showing multiple small infarctions in the right basa l ganglia and a solitary focus in the left cerebral hemisphere. DICTATION ENDS HERE [id number]/[facility] #: [id number]
[2019-04-06] MEDS: Lactated Ringers 1000 ML Bag* 1,000 ML IV SCH (15:09)
--- NOTE | 2019-04-06 19:27 | TRS ---
CONTINUATION ADDENDUM NOW INCLUDED ON THIS REPORT CC: Dr. Keith; Dr. Garcia; Dr. Foley; Dr. Darya Reyes * TRANSFER SUMMARY: DATE OF ADMISSION: 04/05/19 DATE OF TRANSFER: 04/06/19 PRIMARY CARE PROVIDER: Dr. Keith. CONSULTING NEUROLOGISTS: Dr. Garcia and Dr. Foley. ACCEPTING PHYSICIAN: Dr. Darya Reyes. DISCHARGE DIAGNOSES: 1. Embolic cerebrovascular accident. 2. Right high-grade preocclusive carotid artery stenosis. SECONDARY DIAGNOSES: 1. History of transient ischemic attack in 2011. 2. Type 2 diabetes. 3. Hypertension. 4. Hyperlipidemia. 5. Depression. MEDICATION LIST AT THE TIME OF TRANSFER: 1. Acetaminophen 650 mg p.o. q.6 hours p.r.n. pain or fever. 2. Amlodipine 10 mg p.o. daily. 3. Aspirin 81 mg p.o. daily. 4. Atorvastatin 20 mg p.o. daily. 5. Clopidogrel 75 mg p.o. daily. 6. Dextrose 50% 12.5 g IV push for fingersticks less than 60. 7. Heparin 5000 units subcutaneously q.8 hours. 8. Hydrochlorothiazide 12.5 mg p.o. daily. 9. Lispro sliding scale. 10. Lisinopril 20 mg p.o. daily. 11. LR 75 mL an hour. 12. Venlafaxine ER 150 mg p.o. in the morning and 75 mg p.o. in the evening. 13. Ziprasidone 40 mg p.o. b.i.d. HOSPITAL COURSE: Ms. Payton is a 73-year-old lady with a past medical history as stated above, who presented to the emergency room on 04/05/19 with complaints of left arm weakness. She states that she woke up around 2 in the morning on the day of admission and she noted that she could not move her left arm, but she thought she had "slept wrong" and just went back to sleep. She woke up again around 9 a.m. and she still had the left arm weakness associated with mild headache, reason that prompted her visit to the emergency room. For more details about her presentation, I refer you to her history and physical. In the emergency room, the patient had a CT of the brain without contrast that showed no evidence for gross acute infarct, mass effect, or hemorrhage. There is small old lacunar infarct within the right caudate nucleus. The patient was admitted for further workup and she was seen in consultation by Neurology (Dr. Garcia). His impression was that the patient presented with sudden onset of left hemiparesthesia, slurred speech, and left facial droop. The symptoms have nearly resolved except that she still had mild dysarthria and left facial droop. It was felt that the patient was not a candidate for tPA therapy due to her low NIH Stroke Scale and last known well normal was 8 p.m. the night before, so she was outside the therapeutic window. CONTINUATION ADDENDUM: Dr. Garcia felt that the differential diagnosis would include a small lacunar stroke and also seizure. He recommended adding Plavix to her aspirin and also to continue workup with an EEG and MRI of the brain, head, and neck. EEG was performed and there were no clear epileptiform discharges. MRI of the brain showed multiple focal areas of restricted diffusion within the right cerebral hemisphere and also solitary focus in the left cerebral hemisphere consistent with multiple small embolic infarcts. Head MRA showed atherosclerotic change within the A1 segment of the left anterior cerebral artery and within the left posterior cerebral artery. The right vertebral artery is diminished in caliber, which is a change from the prior CT angiogram from 2012. Neck MRA was a limited noncontrasted study. Findings are suggestive of moderate-grade stenosis of the proximal internal carotid artery on both sides. The right vertebral artery is not visualized. CT angiogram of the head and neck or carotid ultrasound were indicated for further evaluation. Due to her creatinine of 1.4, decision was made to pursue carotid ultrasound and it showed elevated peak systolic velocity of the right internal carotid artery with dampening of the distal waveforms suggesting carotid artery stenosis between 50% and 69%, though this is likely artifactual and the dampening of the distal waveforms suggest the high-grade preocclusive stenosis. The patient was seen in followup by Neurology (Dr. Foley) and his impression was the patient had an embolic CVA and the source was likely right carotid artery. He contacted Dr. Reyes at [facility] and the plan is for the patient to be transferred for further evaluation and management for a possible endarterectomy. Of note is the fact that the patient had a transthoracic echocardiogram that showed the ejection fraction was 60% to 65%, functionally benign heart valves, no PFO, and the left atrium was normal in size. The patient had no episodes of atrial fibrillation while on telemetry but she does report some brief episodes of "fluttery sensation" in her chest; so after her workup and treatment are done at [facility], she may benefit of an outpatient event monitor to look for atrial fibrillation. PHYSICAL EXAMINATION: Vital Signs: Temperature is 97.8, heart rate is 68, respiratory rate is 20, oxygen saturation 99% on room air, blood pressure is 158 /54. General: The patient is a pleasant elderly lady, sitting up in a chair, in no acute distress. CVS: Normal S1, S2, regular rate and rhythm. Chest: Breath sounds present bilaterally with no added sounds. Neck: No audible bruit. Neuro: She is alert and oriented x3. There is slight left facial weakness. There is mild left arm drift and there is left hand weakness. DIET: Hearty healthy, consistent carb diet. ACTIVITIES: As tolerated. DISPOSITION: To [facility]. CONDITION AT THE TIME OF DISCHARGE: Fair. STATUS WHILE IN THE HOSPITAL: Observation. Please keep in mind that this is a summarized version of this patient's hospital stay. If you need more information, please feel free to call me at [phone] or please obtain the full medical records. TIME SPENT: Approximately 50 minutes was spent to complete discharge. [id number]/[facility] #: [id number] Nael- [id number]/[facility] #: [id number] VLAD
--- NOTE | 2019-04-06 19:44 | TRS ---
TRANSFER SUMMARY: ADDENDUM: Dr. Garcia felt that the differential diagnosis would include a small lacunar stroke and also seizure. He recommended adding Plavix to her aspirin and also to continue workup with an EEG and MRI of the brain, head, and neck. EEG was performed and there were no clear epileptiform discharges. MRI of the brain showed multiple focal areas of restricted diffusion within the right cerebral hemisphere and also solitary focus in the left cerebral hemisphere consistent with multiple small embolic infarcts. Head MRA showed atherosclerotic change within the A1 segment of the left anterior cerebral artery and within the left posterior cerebral artery. The right vertebral artery is diminished in caliber, which is a change from the prior CT angiogram from 2012. Neck MRA was a limited noncontrasted study. Findings are suggestive of moderate-grade stenosis of the proximal internal carotid artery on both sides. The right vertebral artery is not visualized. CT angiogram of the head and neck or carotid ultrasound were indicated for further evaluation. Due to her creatinine of 1.4, decision was made to pursue carotid ultrasound and it showed elevated peak systolic velocity of the right internal carotid artery with dampening of the distal waveforms suggesting carotid artery stenosis between 50% and 69%, though this is likely artifactual and the dampening of the distal waveforms suggest the high-grade preocclusive stenosis. The patient was seen in followup by Neurology (Dr. Foley) and his impression was the patient had an embolic CVA and the source was likely right carotid artery. He contacted Dr. Reyes at [facility] and the plan is for the patient to be transferred for further evaluation and management for a possible endarterectomy. Of note is the fact that the patient had a transthoracic echocardiogram that showed the ejection fraction was 60% to 65%, functionally benign heart valves, no PFO, and the left atrium was normal in size. The patient had no episodes of atrial fibrillation while on telemetry but she does report some brief episodes of "fluttery sensation" in her chest; so after her workup and treatment are done at [facility], she may benefit of an outpatient event monitor to look for atrial fibrillation. PHYSICAL EXAMINATION: Vital Signs: Temperature is 97.8, heart rate is 68, respiratory rate is 20, oxygen saturation 99% on room air, blood pressure is 158 /54. General: The patient is a pleasant elderly lady, sitting up in a chair, in no acute distress. CVS: Normal S1, S2, regular rate and rhythm. Chest: Breath sounds present bilaterally with no added sounds. Neck: No audible bruit. Neuro: She is alert and oriented x3. There is slight left facial weakness. There is mild left arm drift and there is left hand weakness. DIET: Hearty healthy, consistent carb diet. ACTIVITIES: As tolerated. DISPOSITION: To [facility]. CONDITION AT THE TIME OF DISCHARGE: Fair. STATUS WHILE IN THE HOSPITAL: Observation. Please keep in mind that this is a summarized version of this patient's hospital stay. If you need more information, please feel free to call me at or please obtain the full medical records. TIME SPENT: Approximately 50 minutes was spent to complete discharge. [id number]/[facility] #: [id number] VLAD
== END 2019-04-06 17:00 | disposition short-term general hospital (02) ==
LOC: ED 10:40 → MEDTELE 12:52
PROVIDERS: ADMIT Internal Medicine; ATTEND Internal Medicine
DX: I63.89 Other cerebral infarction (principal); I65.21 Occlusion and stenosis of right carotid artery; R51 Headache; R53.1 Weakness; Z79.01 Long term (current) use of anticoagulants; I10 Essential (primary) hypertension; Z86.73 Personal history of transient ischemic attack (TIA), and cerebral infarction without residual deficits; Z87.891 Personal history of nicotine dependence; E11.9 Type 2 diabetes mellitus without complications; Z79.82 Long term (current) use of aspirin; E78.5 Hyperlipidemia, unspecified
CPT/HCPCS: 36415; 70450; 70544; 70547; 70551; 71045; 80053; 80061; 82607; 83036; 83605; 84443; 84484; 85025; 85610; 85730; 93005; 93306; 95816; 96372; 99282; A9270-GY; G0378; J1644

== ENCOUNTER 2019-04-12 19:48 | Emergency (ER) | payer MEDICARE, OTHER ==
--- NOTE | 2019-04-12 21:25 | ED ---
Headache - HPI Summary HPI Summary: Patient is a 73 y/o F with Hx of recent CVA presents to ED with complaints of neck pain and posterior BOCANEGRA. She states that Sx onset 1700 today. Patient took Tylenol, 650 mg, at around 1830 today and states that this alleviated Sx somewhat. She does note that she is still experiencing intermittent "zinging" frontal BOCANEGRA pain. No visual changes, no acute weakness is reported. Residual facial droop from CVA is unchanged per . Hx of HTN, depression, Occasional alc usage, no substance usage, former smoker. Patient is on Lipitor, Effexor, amlodipine. On triage, pain is rated 3/10, nothing is noted to aggravate/alleviate Sx. Home medications and allergies are reviewed. - History Of Current Complaint Chief Complaint: EDHeadache Stated Complaint: "BLOOD PRESSURE HIGH/ HEADACHE PER PT: Time Seen by Provider: 04/12/19 21:16 Hx Obtained From: Patient Onset/Duration: Still Present - some frontal BOCANEGRA pain still present Currently Pain Is: Current Pain Scale(0-10)= - 3/10, Mild Timing: Hours Character: Typical Headache - "zinging" pain Location of Headache: Frontal, Occipital Aggravating Factor: Nothing Allevating Factors: Nothing Associated Signs And Symptoms: Neck Pain, Other (Noted In Comments) - no weakness, no visual changes - Allergies/Home Medications Allergies/Adverse Reactions: Allergies Allergy/AdvReac Type Severity Reaction Status Date / Time Cephalosporins Allergy Rash Verified 04/05/19 13:06 PMH/Surg Hx/FS Hx/Imm Hx Endocrine/Hematology History: Reports: Hx Anticoagulant Therapy - ASA daily Cardiovascular History: Reports: Hx Hypertension Denies: Hx Pacemaker/ICD Respiratory History: Reports: Hx Seasonal Allergies GI History: Reports: Hx Irritable Bowel Denies: Hx Ulcer Musculoskeletal History: Reports: Hx Arthritis - patient reports in right hip Sensory History: Reports: Hx Contacts or Glasses Denies: Hx Hearing Aid Opthamlomology History: Reports: Hx Contacts or Glasses Neurological History: Reports: Hx CVA, Hx Transient Ischemic Attacks (TIA) Psychiatric History: Reports: Hx Depression Denies: Hx Panic Disorder - Cancer History Cancer Type, Location and Year: patient reports precancer taken off lower legs. - Surgical History Surgery Procedure, Year, and Place: HYSTERCTOMY Infectious Disease History: No Infectious Disease History: Denies: Traveled Outside the [place] in Last 30 Days - Family History Known Family History: Negative: Cardiac Disease - Social History Alcohol Use: Occasionally Hx Substance Use: No Substance Use Type: Reports: None Hx Tobacco Use: Yes Smoking Status (MU): Former Smoker Review of Systems Eyes: Other - negative - visual changes Musculoskeletal: Other - POSITIVE - NECK PAIN Positive: Headache. Negative: Weakness All Other Systems Reviewed And Are Negative: Yes Physical Exam - Summary Physical Exam Summary: Appearance: Well-appearing, Well-nourished, lying in bed comfortably Skin: Warm, dry, no obvious rash Eyes: sclera anicteric, no conjunctival pallor ENT: mucous membranes moist, pharynx appears normal Neck: Supple, nontender Respiratory: Clear to auscultation, no signs of respiratory distress Cardiovascular: Normal S1, S2. No murmurs. Normal distal pulses in tibial and radial bilaterally. Abdomen: Soft, nontender, normal active bowel sounds present Musculoskeletal: Normal, Strength/ROM Intact Neurological: A&Ox3, awake and alert, mentation is normal, speech is fluent and appropriate Psychiatric: affect is normal, does not appear anxious or depressed Triage Information Reviewed: Yes Vital Signs On Initial Exam: Initial Vitals Temp Pulse Resp BP Pulse Ox 98 F 77 18 136/74 96 04/12/19 19:50 04/12/19 19:50 04/12/19 19:50 04/12/19 19:50 04/12/19 19:50 Vital Signs Reviewed: Yes Diagnostics - Vital Signs Vital Signs Temp Pulse Resp BP Pulse Ox 04/12/19 19:50 98 F 77 18 136/74 96 - Laboratory Lab Statement: Any lab studies that have been ordered have been reviewed, and results considered in the medical decision making process. Headache Course/Dx - Course Course Of Treatment: Patient is a 73 y/o F with Hx of recent CVA presents to ED with complaints of neck pain and posterior BOCANEGRA. She states that Sx onset 1700 today. Patient took Tylenol, 650 mg, at around 1830 today and states that this alleviated Sx somewhat. She does note that she is still experiencing intermittent "zinging" frontal BOCANEGRA pain. No visual changes, no acute weakness is reported. Residual facial droop from CVA is unchanged per . Hx of HTN, depression, Occasional alc usage, no substance usage, former smoker. Patient is on Lipitor, Effexor, amlodipine. Physical exam is unremarkable. Likelihood of whether or not the patient is having a stroke was discussed. Testing deferred as patient's Sx are not worrisome for stroke. Strict return precautions given. Patient discharged to home, she is agreeable with this. - Diagnoses Provider Diagnoses: Headache Discharge - Sign-Out/Discharge Documenting (check all that apply): Patient Departure - discharge Patient Received Moderate/Deep Sedation with Procedure: No - Discharge Plan Condition: Good Disposition: HOME Patient Education Materials: Tension Headache (ED) Referrals: Toma Keith MD [Primary Care Provider] - Additional Instructions: I don't think this headache is worrisome for another stroke, so have deferred any further testing. If you have any other problems overnight give me a call, I am here until 7 am. - Billing Disposition and Condition Condition: GOOD Disposition: Home - Attestation Statements Document Initiated by Cristoferibe: Yes Documenting Scribe: RADHA HEADLEY Provider For Whom Tarhsa is Documenting (Include Credential): DHRUV CARRILLO MD Scribe Attestation: I, RADHA HEADLEY, scribed for DHRUV CARRILLO MD on 04/13/19 at 0530. Scribe Documentation Reviewed: Yes Provider Attestation: The documentation as recorded by the RADHA hoyos accurately reflects the service I personally performed and the decisions made by me, DHRUV CARRILLO MD Status of Scribe Document: Viewed
[2019-04-12 21:33] VITALS: BP 186/72
== END 2019-04-12 21:31 | disposition home or self-care (01) ==
LOC: ED 19:48
DX: R51 Headache (principal); M54.2 Cervicalgia; I69.392 Facial weakness following cerebral infarction; I10 Essential (primary) hypertension; F32.9 Major depressive disorder, single episode, unspecified; Z79.82 Long term (current) use of aspirin; Z88.1 Allergy status to other antibiotic agents; Z87.891 Personal history of nicotine dependence
CPT/HCPCS: 99282

== ENCOUNTER 2020-09-01 18:34 | Observation (INO) ==
[2020-09-01] MEDS ORDERED: Ondansetron 4 mg VIAL 2 MG/ML 2 ml VIAL IV ONE (19:15)
[2020-09-01] MEDS: NS 0.9% 1000 ml BAG 1,000 ML IV ONE (19:52)
[2020-09-01 19:57] LABS: ABS Monocytes 0.3 10^3/ul (0-0.8); ABS Neutrophils 6.8 10^3/ul (1.5-7.7); Hematocrit 38 % (35-47); Hemoglobin 13.5 g/dL (12.0-16.0); Lymphocyte % 12.4 %; Mean Corpuscular HGB Conc 36 g/dL (31-36); Mean Corpuscular Hemoglobin 32 pg (27-31); Mean Corpuscular Volume 89 fL (80-97); Mean Platelet Volume 7.9 fL (7.4-10.4); Platelet Count 200 10^3/uL (150-450); Red Blood Count 4.23 10^6 /uL (3.70-4.87); Red Cell Distribution Width 12 % (10-15); White Blood Count 8.2 10^3/uL (3.5-10.8)
[2020-09-01 20:12] LABS: Urine Appearance Clear; Urine Bilirubin Negative (Negative); Urine Blood Negative (Negative); Urine Color Yellow; Urine Glucose Negative (Negative); Urine Ketones 1+ (Negative); Urine Nitrite Negative (Negative); Urine Protein 2+(100 mg/dL) (Negative); Urine Specific Gravity 1.009 (1.010-1.030); Urine Urobilinogen Negative (Negative)
[2020-09-01 20:16] LABS: Urine Bacteria Absent (Absent); Urine Red Blood Cell Trace(0-2/hpf) (Absent); Urine Squamous Epithelial Cell Present (Absent); Urine White Blood Cell Trace(0-5/hpf) (Absent)
[2020-09-01 20:18] LABS: Albumin 4.2 g/dL (3.2-5.2); Albumin/Globulin Ratio 1.4 (1-3); C Reactive Protein 1.09 mg/L (<8.01); Calcium 9.4 mg/dL (8.6-10.3); EGFR African American 51.4 (>60); EGFR Non-African American 42.5 (>60); Potassium 3.5 mmol/L (3.5-5.0); Total Bilirubin 0.9 mg/dL (0.2-1.0); Total Protein 7.2 g/dL (6.4-8.9)
[2020-09-02] MEDS: NS 0.9% 1000 ml BAG 1,000 ML IV ONE (00:05)
[2020-09-02] MEDS ORDERED: NS 0.9% 1000 ml BAG 1,000 ML IV SCH (02:15)
[2020-09-02] MEDS ORDERED: Ondansetron 4 mg VIAL 2 MG/ML 2 ml VIAL IV PRN (02:19)
[2020-09-02 08:11] LABS: BUN/Creatinine Ratio 12.4 (8-20); Calcium 8.3 mg/dL (8.6-10.3); EGFR African American 48.6 (>60); EGFR Non-African American 40.2 (>60); Potassium 3.1 mmol/L (3.5-5.0)
[2020-09-02] MEDS ORDERED: Venlafaxine XR 75 mg PO SCH (09:00)
[2020-09-02] MEDS: Aspirin EC 81 mg TAB.EC (enteric coated) PO SCH (09:24)
[2020-09-02] MEDS: Venlafaxine XR 75 mg PO SCH (09:24)
[2020-09-02] MEDS: Enoxaparin 40 MG/0.4 ML SYR SUBCUT SCH (09:25)
[2020-09-02 12:40] LABS: BUN/Creatinine Ratio 14.2 (8-20); Calcium 8.5 mg/dL (8.6-10.3); EGFR African American 49.5 (>60); EGFR Non-African American 40.9 (>60); Potassium 3.4 mmol/L (3.5-5.0)
[2020-09-02] MEDS ORDERED: KCL 10 MEQ/50 ML IVPREMIX 10 MEQ/50 ML BAG IV ONE (13:47)
[2020-09-02] MEDS: KCL 20 MEQ/100 ML IVPREMIX 20 MEQ/100 ML BAG IV SCH (18:29)
[2020-09-03] MEDS: KCL 20 MEQ/100 ML IVPREMIX 20 MEQ/100 ML BAG IV SCH (00:49)
[2020-09-03 07:04] LABS: BUN/Creatinine Ratio 15.5 (8-20); Calcium 8.3 mg/dL (8.6-10.3); EGFR Non-African American 45.4 (>60)
[2020-09-03 08:48] VITALS: BP 140/58
[2020-09-03] MEDS: Aspirin EC 81 mg TAB.EC (enteric coated) PO SCH (09:18)
[2020-09-03] MEDS: Venlafaxine XR 75 mg PO SCH (09:19)
[2020-09-03] MEDS: Enoxaparin 40 MG/0.4 ML SYR SUBCUT SCH (09:24)
== END 2020-09-03 12:00 | disposition home or self-care (01) ==
LOC: MED 18:34 → ED 18:34 → MED 09-02 03:47 → UNDODISOB 09-02 04:44
PROVIDERS: ADMIT Student in an Organized Health Care Education/Training Program; ATTEND Internal Medicine

== ENCOUNTER 2024-04-05 11:15 | Inpatient (IN) ==
[2024-04-05 11:41] LABS: ABS Basophils 0.1 10^3/uL (0.0-0.1); ABS Eosinophils 0.1 10^3/uL (0.0-0.5); ABS Lymphocytes 2.6 10^3/uL (1.0-4.8); ABS Neutrophils 4.9 10^3/uL (1.5-7.6); Hematocrit 42.4 % (35-45); Hemoglobin 14.7 g/dL (11.5-14.3); Lymphocyte % 30.5 %; Mean Corpuscular Hgb Conc 34.7 g/dL (31-36); Platelet Count 227 10^3/uL (150-450); Red Cell Distribution Width 12.6 % (12-17); White Blood Count 8.7 10^3/uL (3.8-11.8)
[2024-04-05] MEDS: Iodixanol (CONTRAST) 320 MG/ML 100 ML SDV IV ONE (11:46)
[2024-04-05] MEDS ORDERED: LORazepam 2 MG/ML 1 mL Syringe ONE (11:49)
[2024-04-05 11:59] LABS: Albumin 4.2 g/dL (3.2-5.2); Albumin/Globulin Ratio 1.3 (1-3); Calcium 9.9 mg/dL (8.6-10.3); Creatinine, Serum 1.58 mg/dL (0.51-0.95); Globulin 3.3 g/dL (2-4); HDL Cholesterol 88.5 mg/dL; Indirect Bilirubin 0.6 mg/dL (0.3-1.0); Potassium 3.9 mmol/L (3.5-5.0); Total Bilirubin 0.6 mg/dL (0.2-1.0); Total Protein 7.5 g/dL (6.4-8.9); eGFR CKD-EPI 33.1 (>60)
[2024-04-05 12:01] LABS: Activated Partial Thrombo Time 32.6 seconds (26.0-38.0); INR 0.95 (0.83-1.13)
[2024-04-05] MEDS: LORazepam 2 mg VIAL 1 ml IV PUSH ONE ×2 (12:04→15:15)
[2024-04-05] MEDS: LORazepam 2 MG/ML 1 mL Syringe IV ONE (12:04)
[2024-04-05] MEDS: TENECTEPLASE 50 MG VIAL KIT 5 MG/ML (reconstituted) IV ONE (12:12)
[2024-04-05] MEDS ORDERED: hydrALAZINE 20 mg/ml 1 ML Vial IV ONE (12:37)
[2024-04-05] MEDS: hydrALAZINE 20 mg/ml 1 ML Vial IV IV SLOW PU ONE (12:55)
[2024-04-05] MEDS ORDERED: Lorazepam PYXIS KEY PRN ×2 (14:40→14:52)
[2024-04-05] MEDS: Sulfur Hexaflouride MICROSPHR 25 MG VIAL IV ONE (15:22)
[2024-04-05] MEDS: Lactated Ringers 1000 ml BAG 1,000 ML IV SCH (15:43)
[2024-04-05] MEDS: Ziprasidone IM 20 mg VIAL 1 ml VIAL IM SCH (20:32)
[2024-04-05] MEDS: hydrALAZINE 20 mg/ml 1 ML Vial IV IV SLOW PU PRN (23:30)
[2024-04-06] MEDS ORDERED: Lorazepam PYXIS KEY PRN (00:40)
[2024-04-06] MEDS: LORazepam 2 mg VIAL 1 ml IV PUSH PRN (05:21)
[2024-04-06] MEDS: niCARdipine 0.1MG/ML IVPREMIX 20 MG/200 ML BAG IV SCH (08:56)
[2024-04-06] MEDS: niCARdipine 0.1MG/ML IVPREMIX 20 MG/200 ML BAG IV ONE (08:59)
[2024-04-06] MEDS ORDERED: niCARdipine 0.1MG/ML IVPREMIX 20 MG/200 ML BAG IV SCH (09:00)
[2024-04-06] MEDS ORDERED: Atropine 1% (ORAL/SL) 15 ML BTL SL PRN (10:14)
[2024-04-06] MEDS: Venlafaxine XR 75 mg PO SCH (10:46)
[2024-04-06] MEDS: Morphine ORAL CONCENTRATE 5 MG/0.25 ML ORAL.SYRIN SL PRN ×2 (11:08→12:09)
[2024-04-07 09:35] VITALS: BP 161/64
== END 2024-04-12 13:00 | disposition expired | DRG 61 ==
LOC: ED 11:15 → ICU 12:42 → SUATTDRO 12:42 → EDHOLD 12:42 → ICU 13:27 → MED 04-07 09:31
PROVIDERS: ADMIT Student in an Organized Health Care Education/Training Program; ATTEND Student in an Organized Health Care Education/Training Program